=== PATIENT | female | born 1950 | race African-American/Black ===

== ENCOUNTER 2017-06-30 15:55 | Emergency (ER) | payer OTHER, MEDICARE ==
[~2017-06-30] VITALS: Ht 154.9 cm; Wt 58.0 kg
[2017-06-30 15:58] VITALS: Ht 154.9 cm; Wt 58.0 kg
[2017-06-30 20:15] VITALS: BP 137/68
== END 2017-06-30 20:15 | disposition home or self-care (01) ==
LOC: ED 15:55
DX: S39.012A Strain of muscle, fascia and tendon of lower back, initial encounter (principal); M51.36 Other intervertebral disc degeneration, lumbar region; J01.90 Acute sinusitis, unspecified; M48.07 Spinal stenosis, lumbosacral region; M43.07 Spondylolysis, lumbosacral region; I10 Essential (primary) hypertension; X58.XXXA Exposure to other specified factors, initial encounter; Y93.89 Activity, other specified; Y92.89 Other specified places as the place of occurrence of the external cause; Y99.8 Other external cause status
CPT/HCPCS: J1885